=== PATIENT | male | born 1975 | race Caucasian/White ===

== ENCOUNTER 2020-09-28 22:13 | Inpatient (IN) | payer MEDICAID ==
[~2020-09-28] VITALS: Ht 165.1 cm; Wt 76.7 kg
[2020-09-28] MEDS ORDERED: KETOROLAC 30MG/ML VIAL IV STA (22:32)
[2020-09-28] MEDS ORDERED: SODIUM CHLORIDE 0.9% 1,000 ML IV ONE (22:45)
[2020-09-29 00:23] LABS: HEMATOCRIT. 30.9 % (42.0-52.0); HEMOGLOBIN. 10.8 g/dL (14.0-18.0); MEAN CORPUSCULAR HEMOGLOBIN 36.8 pg (28.0-32.0); MEAN CORPUSCULAR VOLUME 105.3 fL (80.0-94.0); MEAN PLATELET VOLUME 7.3 fl (7.4-10.4); PLATELET 382 x1000/uL (130-400); RED BLOOD CELL COUNT 2.93 mill/uL (4.7-6.1); RED CELL DISTRIBUTION WIDTH 20.2 % (11.6-14.6)
[2020-09-29 00:31] LABS: CLARITY URINE CLOUDY (CLEAR); COLOR URINE DARK YELLOW (YELLOW); KETONES URINE NEGATIVE (NEGATIVE); LEUKOCYTE ESTERASE URINE 2+ (NEGATIVE); NITRITE URINE POSITIVE (NEGATIVE); OCCULT BLOOD URINE NEGATIVE (NEGATIVE); PROTEIN URINE 1+ (NEGATIVE); SPECIFIC GRAVITY URINE 1.025 (1.005-1.030)
[2020-09-29 00:39] LABS: CHLORIDE 97 mEq/L (98-107)
[2020-09-29 00:43] LABS: ETHANOL BLOOD < 10 mg/dL
[2020-09-29 00:44] LABS: *AMPHETAMINES SCREEN URINE NEGATIVE (NEGATIVE); *BARBITURATES SCREEN URINE NEGATIVE (NEGATIVE); *BENZODIAZEPINES SCREEN URINE NEGATIVE (NEGATIVE); *COCAINE SCREEN URINE NEGATIVE (NEGATIVE); METHADONE URINE SCREEN NEGATIVE (NEGATIVE); OPIATES URINE SCREEN NEGATIVE (NEGATIVE)
[2020-09-29 00:45] LABS: CANNABINOID URINE SCREEN NEGATIVE (NEGATIVE); PHENCYCLIDINE URINE SCREEN NEGATIVE (NEGATIVE)
[2020-09-29 02:53] LABS: PLATELET ESTIMATE NORMAL
[2020-09-29] MEDS ORDERED: SODIUM CHLORIDE 0.9% 1000ML BAG (SEPSIS BOLUS) IV NR (03:15)
[2020-09-29] MEDS ORDERED: CEFTRIAXONE 1 G PREMIX 50 ML IV NR (03:30)
[2020-09-29] MEDS ORDERED: HYDROMORPHONE HCL/PF 2MG/ML CPJ IV PRN (08:15)
[2020-09-29] MEDS ORDERED: CLONIDINE 0.1MG TABLET PO PRN (08:15)
[2020-09-29] MEDS ORDERED: ONDANSETRON HCL 4MG/2ML INJ IV PRN (08:15)
[2020-09-29] MEDS ORDERED: NALOXONE HCL 0.4MG/ML VIAL IV PRN (08:30)
[2020-09-29] MEDS: SODIUM CHLORIDE 0.45% 1,000 ML IV SCH ×2 (08:44→22:24)
[2020-09-29] MEDS: HYDROCODONE/ACETAMINOPHEN 5/325MG TABLET PO PRN (10:38)
[2020-09-29] MEDS ORDERED: CEFTRIAXONE 1 G PREMIX 50 ML IV SCH (11:45)
[2020-09-29] MEDS ORDERED: POTASSIUM CHLORIDE INJ 40 MEQ in DEXT 5% WATER 250 ML IV ONE (11:45)
[2020-09-29] MEDS: PANTOPRAZOLE SODIUM 40 MG/VIAL IV SCH (12:10)
[2020-09-29 13:17] LABS: PROTHROMBIN TIME 20.8 sec (9.6-11.0)
[2020-09-29 18:59] VITALS: BP 100/65
[2020-09-29 20:00] VITALS: BP 96/55
[2020-09-30] VITALS (8 sets, daily range): BP systolic 92–104; BP diastolic 55–77
[2020-09-30] MEDS: HYDROCODONE/ACETAMINOPHEN 5/325MG TABLET PO PRN (00:48)
[2020-09-30] MEDS: CEFTRIAXONE 1,000 MG in DEXTROSE 5% WATER 50 ML IV SCH (07:04)
[2020-09-30 08:05] LABS: CHLORIDE 95 mEq/L (98-107)
[2020-09-30 08:09] LABS: INR 2.4; PROTHROMBIN TIME 23.8 sec (9.6-11.0)
[2020-09-30 08:10] LABS: HEMATOCRIT. 27.8 % (42.0-52.0); HEMOGLOBIN. 9.6 g/dL (14.0-18.0); MEAN CORPUSCULAR HEMOGLOBIN 37.5 pg (28.0-32.0); MEAN CORPUSCULAR VOLUME 108.1 fL (80.0-94.0); RED BLOOD CELL COUNT 2.57 mill/uL (4.7-6.1); RED CELL DISTRIBUTION WIDTH 20.9 % (11.6-14.6)
[2020-09-30 08:16] LABS: PHOSPHORUS 3.8 mg/dL (2.5-4.9)
[2020-09-30] MEDS ORDERED: PHYTONADIONE 10MG/ML AMP SUBCUT NR (08:45)
[2020-09-30] MEDS: PANTOPRAZOLE SODIUM 40 MG/VIAL IV SCH (09:26)
[2020-09-30] MEDS ORDERED: PHYTONADIONE 10MG/ML AMP SUBCUT ONE (10:30)
[2020-09-30] MEDS ORDERED: POTASSIUM CHLORIDE INJ 40 MEQ in DEXT 5% WATER 250 ML IV NR (11:00)
[2020-09-30] MEDS: SODIUM CHLORIDE 0.45% 1,000 ML IV SCH (12:38)
[2020-09-30 14:19] LABS: NUCLEATED RED BLOOD CELLS 1 /100 WBC
[2020-09-30 14:20] LABS: MEAN PLATELET VOLUME 9.1 fl (7.4-10.4); PLATELET ESTIMATE DECREASED
[2020-09-30 14:21] LABS: PLATELET 75 x1000/uL (130-400)
[2020-09-30] MEDS: VANCOMYCIN HCL 1000 MG/20 ML ORAL PO SCH ×3 (15:48→23:09)
[2020-10-01] VITALS (17 sets, daily range): BP systolic 92–138; BP diastolic 53–80
[2020-10-01] MEDS: VANCOMYCIN HCL 1000 MG/20 ML ORAL PO SCH ×4 (06:15→23:49)
[2020-10-01] MEDS: CEFTRIAXONE 1,000 MG in DEXTROSE 5% WATER 50 ML IV SCH (06:15)
[2020-10-01] MEDS: SODIUM CHLORIDE 0.45% 1,000 ML IV SCH ×2 (06:15→12:35)
[2020-10-01 07:05] LABS: HEMATOCRIT. 24.7 % (42.0-52.0); HEMOGLOBIN. 8.3 g/dL (14.0-18.0); MEAN CORPUSCULAR VOLUME 110.1 fL (80.0-94.0); MEAN PLATELET VOLUME 7.3 fl (7.4-10.4); PLATELET 253 x1000/uL (130-400); RED BLOOD CELL COUNT 2.24 mill/uL (4.7-6.1); RED CELL DISTRIBUTION WIDTH 21.6 % (11.6-14.6)
[2020-10-01 07:07] LABS: CHLORIDE 94 mEq/L (98-107)
[2020-10-01 07:14] LABS: INR 1.6; PROTHROMBIN TIME 16.8 sec (9.6-11.0)
[2020-10-01] MEDS ORDERED: PHYTONADIONE 10MG/ML AMP SUBCUT NR (09:00)
[2020-10-01] MEDS ORDERED: SODIUM BICARBONATE 4% (2.4MEQ) 5ML VIAL IV ONE (09:24)
[2020-10-01] MEDS ORDERED: LIDOCAINE HCL 1% 20ML VIAL (Pyxis) INJ ONE (09:36)
[2020-10-01] MEDS ORDERED: POTASSIUM CHLORIDE INJ 40 MEQ in DEXT 5% WATER 250 ML IV SCH (11:00)
[2020-10-01] MEDS: PANTOPRAZOLE SODIUM 40 MG/VIAL IV SCH (11:06)
[2020-10-01 19:40] LABS: PLATELET ESTIMATE NORMAL
[2020-10-02] VITALS (8 sets, daily range): BP systolic 91–105; BP diastolic 51–72
[2020-10-02] MEDS: SODIUM CHLORIDE 0.45% 1,000 ML IV SCH ×2 (04:07→15:31)
[2020-10-02] MEDS: CEFTRIAXONE 1,000 MG in DEXTROSE 5% WATER 50 ML IV SCH (06:01)
[2020-10-02] MEDS: VANCOMYCIN HCL 1000 MG/20 ML ORAL PO SCH ×4 (06:02→23:02)
[2020-10-02 07:22] LABS: CHLORIDE 96 mEq/L (98-107)
[2020-10-02] MEDS: PANTOPRAZOLE SODIUM 40 MG/VIAL IV SCH (09:29)
[2020-10-02] MEDS ORDERED: POTASSIUM CHLORIDE 20MEQ TABLET SR PO NR (09:30)
[2020-10-02] MEDS: MAGNESIUM/ALUMINUM HYDROXIDE/SIMETHICONE 30ML UDC PO PRN ×2 (09:57→09:58)
[2020-10-02] MEDS: HYDROCODONE/ACETAMINOPHEN 5/325MG TABLET PO PRN (22:44)
[2020-10-03] VITALS (18 sets, daily range): BP systolic 88–107; BP diastolic 54–76
[2020-10-03] MEDS: VANCOMYCIN HCL 1000 MG/20 ML ORAL PO SCH ×4 (05:46→23:06)
[2020-10-03] MEDS: CEFTRIAXONE 1,000 MG in DEXTROSE 5% WATER 50 ML IV SCH (06:22)
[2020-10-03] MEDS: SODIUM CHLORIDE 0.45% 1,000 ML IV SCH ×2 (06:22→18:01)
[2020-10-03 06:25] LABS: BASOPHILS % 0.1 % (0.0-2.0); EOSINOPHILS % 0.9 % (0.0-5.0); HEMATOCRIT. 25.4 % (42.0-52.0); HEMOGLOBIN. 8.8 g/dL (14.0-18.0); LYMPHOCYTES % 7.4 % (20.0-50.0); MEAN PLATELET VOLUME 7.2 fl (7.4-10.4); MONOCYTES % 5.6 % (2.0-8.0); PLATELET 210 x1000/uL (130-400); RED BLOOD CELL COUNT 2.38 mill/uL (4.7-6.1); RED CELL DISTRIBUTION WIDTH 20.2 % (11.6-14.6)
[2020-10-03 06:27] LABS: CHLORIDE 96 mEq/L (98-107)
[2020-10-03 06:39] LABS: INR 1.4; PROTHROMBIN TIME 15.1 sec (9.6-11.0)
[2020-10-03] MEDS: PANTOPRAZOLE SODIUM 40 MG/VIAL IV SCH (09:05)
[2020-10-03] MEDS ORDERED: FENTANYL CITRATE/PF 50MCG/ML 2ML VIAL ONE (10:18)
[2020-10-03] MEDS ORDERED: SODIUM BICARBONATE 4% (2.4MEQ) 5ML VIAL IV ONE (10:18)
[2020-10-03] MEDS ORDERED: LIDOCAINE HCL 1% 20ML VIAL (Pyxis) INJ ONE (10:18)
[2020-10-03] MEDS ORDERED: FENTANYL CITRATE/PF 50MCG/ML 2ML VIAL IV ONE (11:30)
[2020-10-03] MEDS ORDERED: POTASSIUM CHLORIDE INJ 40 MEQ in DEXT 5% WATER 250 ML IV NR (12:00)
[2020-10-03 15:06] LABS: HEMATOCRIT 29.5 % (42.0-52.0); HEMOGLOBIN 10.3 g/dL (14.0-18.0)
[2020-10-03] MEDS: HYDROCODONE/ACETAMINOPHEN 5/325MG TABLET PO PRN (22:52)
[2020-10-04] VITALS: BP 101/66
[2020-10-04 04:00] VITALS: BP 100/88
[2020-10-04] MEDS: VANCOMYCIN HCL 1000 MG/20 ML ORAL PO SCH ×4 (06:05→23:15)
[2020-10-04] MEDS: CEFTRIAXONE 1,000 MG in DEXTROSE 5% WATER 50 ML IV SCH (06:05)
[2020-10-04 08:00] VITALS: BP 100/70
[2020-10-04] MEDS ORDERED: LIDOCAINE HCL 1% 20ML VIAL (Pyxis) INJ ONE (08:13)
[2020-10-04] MEDS ORDERED: SODIUM BICARBONATE 4% (2.4MEQ) 5ML VIAL IV ONE (08:13)
[2020-10-04] MEDS: PANTOPRAZOLE SODIUM 40 MG/VIAL IV SCH (09:46)
[2020-10-04] MEDS: SODIUM CHLORIDE 0.45% 1,000 ML IV SCH ×2 (09:47→21:45)
[2020-10-04] MEDS ORDERED: POTASSIUM CHLORIDE 20MEQ TABLET SR PO NR (10:00)
[2020-10-04 11:29] LABS: CHLORIDE 96 mEq/L (98-107)
[2020-10-04 11:31] LABS: HEMATOCRIT. 29.5 % (42.0-52.0); HEMOGLOBIN. 10.1 g/dL (14.0-18.0); MEAN CORPUSCULAR VOLUME 108.4 fL (80.0-94.0); MEAN PLATELET VOLUME 7.4 fl (7.4-10.4); PLATELET 227 x1000/uL (130-400); RED BLOOD CELL COUNT 2.72 mill/uL (4.7-6.1)
[2020-10-04 12:00] VITALS: BP 95/54
[2020-10-04 16:00] VITALS: BP 99/56
[2020-10-04 20:00] VITALS: BP 96/56
[2020-10-04 21:31] LABS: PLATELET ESTIMATE NORMAL
[2020-10-05] VITALS: BP 94/56
[2020-10-05] MEDS ORDERED: HYDROCODONE/ACETAMINOPHEN 5/325MG TABLET PO PRN (02:00)
[2020-10-05 04:00] VITALS: BP 90/52
[2020-10-05] MEDS: VANCOMYCIN HCL 1000 MG/20 ML ORAL PO SCH ×2 (05:26→13:48)
[2020-10-05] MEDS: PANTOPRAZOLE SODIUM 40 MG/VIAL IV SCH (09:20)
[2020-10-05] MEDS: SODIUM CHLORIDE 0.45% 1,000 ML IV SCH (10:55)
[2020-10-05 12:00] VITALS: BP 94/56
[2020-10-05 13:05] VITALS: BP 94/56
== END 2020-10-05 14:45 | disposition home or self-care (01) | DRG 280 ==
LOC: ER 22:13 → MICUSO 09-29 04:53 → EDBEDREQ 09-29 04:58 → EDBEDREQTM 09-29 04:58 → 8WST 09-29 16:03
PROVIDERS: ADMIT Hospitalist; ATTEND Hospitalist
PROC: 30233K1 Transfusion of Nonautologous Frozen Plasma into Peripheral Vein, Percutaneous Approach (ICD-10-PCS; principal; 2020-09-30)
PROC: 0W9G30Z Drainage of Peritoneal Cavity with Drainage Device, Percutaneous Approach (ICD-10-PCS; 2020-10-01)
PROC: 0FB03ZX Excision of Liver, Percutaneous Approach, Diagnostic (ICD-10-PCS; 2020-10-03)
PROC: 0W9G30Z Drainage of Peritoneal Cavity with Drainage Device, Percutaneous Approach (ICD-10-PCS; 2020-10-04)
DX: K70.31 Alcoholic cirrhosis of liver with ascites (principal); K70.11 Alcoholic hepatitis with ascites; N17.0 Acute kidney failure with tubular necrosis; E43 Unspecified severe protein-calorie malnutrition; D68.9 Coagulation defect, unspecified; A04.72 Enterocolitis due to Clostridium difficile, not specified as recurrent; E87.1 Hypo-osmolality and hyponatremia; D62 Acute posthemorrhagic anemia; K92.2 Gastrointestinal hemorrhage, unspecified; K40.90 Unilateral inguinal hernia, without obstruction or gangrene, not specified as recurrent; Z20.822 Contact with and (suspected) exposure to COVID-19; D53.9 Nutritional anemia, unspecified; F10.10 Alcohol abuse, uncomplicated; J98.11 Atelectasis; N39.0 Urinary tract infection, site not specified; Y90.9 Presence of alcohol in blood, level not specified; K76.9 Liver disease, unspecified; Z68.28 Body mass index [BMI] 28.0-28.9, adult
CPT/HCPCS: 36415; 49083; 71045; 74176; 76700; 76705; 77012; 80053; 80076; 80305; 80320; 81003; 82040; 82105; 82140; 82248; 82270; 82378; 83735; 84100; 84484; 85014; 85018; 85025; 85384; 86301; 86850; 86900; 86927; 87015; 87045; 87426; 87427; 87493; 88108; 88307; 88312; 88313; 89055; 93005; 99152; 99153; 99291; C1893; C9113; J0696; J1885; J3010; J3370; J3430; J3480; J3490; J7030; J7040; J7060; P9017; G0480; G0500